=== PATIENT | male | born 1990 ===

== ENCOUNTER 2018-12-29 09:37 | Emergency (ER) | payer OTHER ==
[2018-12-29] MEDS ORDERED: CLINDAMYCIN 600MG/D5W 600 MG/50 ML BAG IV ONE (12:18)
[2018-12-29] MEDS ORDERED: KETOROLAC 30 MG/ML INJ ONE (12:18)
--- NOTE | 2018-12-29 13:09 | ER ---
Nurse's Notes [facility] Name: Khurram Renteria Age: 28 yrs Sex: Male : 1990 Arrival Date: 12/29/2018 Time: 09:44 Bed 23 Private MD: None, None Diagnosis: Cellulitis and acute lymphangitis of face Presentation: 12/29 09:59 Presenting complaint: Patient states: abscess to the left jaw/neck started about sv Thursday when he came here from [facility]. Went to an ER in [place] they I\T\D and sutured it, sent home with prescriptions (Amoxicillin, Tylenol #3, Bactroban ointment). Swelling and redness has increased. Transition of care: patient was not received from another setting of care. Onset of symptoms was December 25, 2018. Care prior to arrival: None. 09:59 Method Of Arrival: Ambulatory sv 09:59 Acuity: ALPA 3 sv 10:57 Risk Assessment: Do you want to hurt yourself or someone else? Patient reports no tw2 desire to harm self or others. Initial Sepsis Screen: Does the patient meet any 2 criteria? No. Patient's initial sepsis screen is negative. Does the patient have a suspected source of infection? Yes: Skin breakdown/wound. Historical: - Allergies: 10:02 No Known Allergies; sv - PMHx: 10:02 None; sv - PSHx: 10:02 left ankle; sv - Immunization history:: Adult Immunizations. - Social history:: Smoking status: Patient/guardian denies using alcohol, street drugs, The patient lives with family. - Ebola Screening: : Patient denies exposure to infectious person. - Family history:: not pertinent. Screenin:57 Abuse screen: Denies threats or abuse. Nutritional screening: No deficits noted. tw2 Tuberculosis screening: No symptoms or risk factors identified. Fall Risk None identified. Assessment: 11:00 General: Appears in no apparent distress. slender, well groomed, Behavior is calm, tw2 cooperative, appropriate for age. Pain: Complains of pain in left ear and left jaw. Neuro: Level of Consciousness is awake, alert, obeys commands, Oriented to person, place, time, situation. Cardiovascular: Heart tones S1 S2 Capillary refill < 3 seconds Patient's skin is warm and dry. Respiratory: Airway is patent Respiratory effort is even, unlabored, Respiratory pattern is regular, symmetrical, Breath sounds are clear bilaterally. GI: No signs and/or symptoms were reported involving the gastrointestinal system. : No signs and/or symptoms were reported regarding the genitourinary system. EENT: No signs and/or symptoms were reported regarding the EENT system. Derm: Abscess located on left ear and left jaw. Musculoskeletal: Range of motion: intact in all extremities. 12:29 Reassessment: Patient appears in no apparent distress at this time. No changes from tw2 previously documented assessment. Patient and/or family updated on plan of care and expected duration. Pain level reassessed. Patient is alert, oriented x 3, equal unlabored respirations, skin warm/dry/pink. 13:40 Reassessment: Patient appears in no apparent distress at this time. Patient and/or tw2 family updated on plan of care and expected duration. Pain level reassessed. Patient is alert, oriented x 3, equal unlabored respirations, skin warm/dry/pink. Patient states feeling better. Vital Signs: 10:03 BP 112 / 70; Pulse 90; Resp 16; Temp 99.7; Pulse Ox 99% ; Weight 81.65 kg; Height 6 ft. sv 0 in. (182.88 cm); 12:29 BP 118 / 74; Pulse 73; Resp 17; Pulse Ox 96% on R/A; tw2 13:39 BP 120 / 74; Pulse 87; Resp 17; Pulse Ox 100% on R/A; tw2 10:03 Body Mass Index 24.41 (81.65 kg, 182.88 cm) sv ED Course: 09:44 Patient arrived in ED. dl4 09:44 None, None is Private Physician. dl4 10:02 Triage completed. sv 10:04 Arm band placed on. sv 10:55 Tona Kelesy MD is Attending Physician. ma2 10:57 Medina Mota RN is Primary Nurse. tw2 10:58 Bed in low position. Call light in reach. Pulse ox on. NIBP on. tw2 12:24 Missed attempt(s): 22 gauge in left antecubital area. Bleeding controlled, band aid tw2 applied, catheter tip intact. 12:26 Inserted saline lock: 22 gauge in right Blood collected. ss 13:41 No provider procedures requiring assistance completed. IV discontinued, intact, tw2 bleeding controlled, No redness/swelling at site. Pressure dressing applied. Administered Medications: 12:25 Drug: TORadol 30 mg Route: IVP; Site: right antecubital; tw2 13:27 Follow up: Response: No adverse reaction; Pain is decreased tw2 12:28 Drug: Clindamycin 600 mg Route: IVPB; Infused Over: 30 mins; Site: right antecubital; tw2 13:05 Follow up: Response: No adverse reaction; IV Status: Completed infusion tw2 Outcome: 13:09 Discharge ordered by . randy 13:41 Discharged to home ambulatory, with friend. tw2 13:41 Condition: stable 13:41 Discharge instructions given to patient, friend, Instructed on discharge instructions, follow up and referral plans. medication usage, Demonstrated understanding of instructions, follow-up care, medications, Prescriptions given X 2. 13:42 Patient left the ED. tw2 Signatures: Kelly Salazar RN CECELIA Charlotte Gomes RN RN ss Wise, Tara, RN RN tw2 Tona Kelsey MD MD ma2 Luna, David dl4
--- NOTE | 2018-12-29 13:10 | EDPHYS ---
Physician Documentation [facility] Name: Khurram Renteria Age: 28 yrs Sex: Male : 1990 Arrival Date: 12/29/2018 Time: 09:44 Bed 23 Private MD: None, None ED Physician Tona Kelsey HPI: 12/29 13:05 This 28 yrs old Male presents to ER via Ambulatory with complaints of Abscess. ma2 13:05 The patient presents with cellulitis of the face. Description: draining. Onset: The ma2 symptoms/episode began/occurred gradually, 2 day(s) ago. Associated signs and symptoms: Pertinent positives: drainage, erythema, swelling, Pertinent negatives: foreign body sensation, headache. Modifying factors: the symptoms are alleviated by the symptoms are aggravated by nothing. Severity of symptoms: At their worst the symptoms were mild, moderate, in the emergency department the symptoms are unchanged. The patient has not experienced similar symptoms in the past. seen [facility] had i and d, here with worsening erythema only takes abx ointment, . Historical: - Allergies: 10:02 No Known Allergies; sv - PMHx: 10:02 None; sv - PSHx: 10:02 left ankle; sv - Immunization history:: Adult Immunizations. - Social history:: Smoking status: Patient/guardian denies using alcohol, street drugs, The patient lives with family. - Ebola Screening: : Patient denies exposure to infectious person. - Family history:: not pertinent. ROS: 13:05 Constitutional: Negative for fever, chills, and weight loss, Respiratory: Negative for ma2 shortness of breath, cough, wheezing, and pleuritic chest pain, Abdomen/GI: Negative for abdominal pain, nausea, diarrhea, and constipation, : Negative for injury, bleeding, discharge, and swelling. 13:05 ENT: Negative for injury, pain, and discharge. 13:05 ENT: Positive for Negative for 13:05 Skin: Positive for cellulitis, Negative for avulsion, ecchymosis, puncture, ulceration. 13:05 All other systems are negative. Exam: 13:05 Constitutional: This is a well developed, well nourished patient who is awake, alert, ma2 and in no acute distress. Eyes: Pupils equal round and reactive to light, extra-ocular motions intact. Lids and lashes normal. Conjunctiva and sclera are non-icteric and not injected. Cornea within normal limits. Periorbital areas with no swelling, redness, or edema. ENT: Nares patent. No nasal discharge, no septal abnormalities noted. Tympanic membranes are normal and external auditory canals are clear. Oropharynx with no redness, swelling, or masses, exudates, or evidence of obstruction, uvula midline. Mucous membranes moist. Neck: Trachea midline, no thyromegaly or masses palpated, and no cervical lymphadenopathy. Supple, full range of motion without nuchal rigidity, or vertebral point tenderness. No Meningismus. Chest/axilla: Normal chest wall appearance and motion. Nontender with no deformity. No lesions are appreciated. Cardiovascular: Regular rate and rhythm with a normal S1 and S2. No gallops, murmurs, or rubs. Normal PMI, no JVD. No pulse deficits. Respiratory: Lungs have equal breath sounds bilaterally, clear to auscultation and percussion. No rales, rhonchi or wheezes noted. No increased work of breathing, no retractions or nasal flaring. Abdomen/GI: Soft, non-tender, with normal bowel sounds. No distension or tympany. No guarding or rebound. No evidence of tenderness throughout. 13:05 Head/face: left facial abescess is drained however has mild edema and cellulitis no fluctuance, redness is 2x2 cm, sutures removed in ed . Vital Signs: 10:03 BP 112 / 70; Pulse 90; Resp 16; Temp 99.7; Pulse Ox 99% ; Weight 81.65 kg; Height 6 ft. sv 0 in. (182.88 cm); 12:29 BP 118 / 74; Pulse 73; Resp 17; Pulse Ox 96% on R/A; tw2 13:39 BP 120 / 74; Pulse 87; Resp 17; Pulse Ox 100% on R/A; tw2 10:03 Body Mass Index 24.41 (81.65 kg, 182.88 cm) sv MDM: 10:56 Patient medically screened. ma2 13:05 Differential diagnosis: cellulitis. Data reviewed: vital signs, nurses notes. ma2 Counseling: I had a detailed discussion with the patient and/or guardian regarding: the historical points, exam findings, and any diagnostic results supporting the discharge/admit diagnosis, the presence of at least one elevated blood pressure reading (>120/80) during this emergency department visit. Response to treatment: the patient's symptoms have markedly improved after treatment. 12/29 12:04 Order name: Suture Removal; Complete Time: 13:27 ma2 12/29 12:05 Order name: IV Start; Complete Time: 12:28 tw2 Administered Medications: 12:25 Drug: TORadol 30 mg Route: IVP; Site: right antecubital; tw2 13:27 Follow up: Response: No adverse reaction; Pain is decreased tw2 12:28 Drug: Clindamycin 600 mg Route: IVPB; Infused Over: 30 mins; Site: right antecubital; tw2 13:05 Follow up: Response: No adverse reaction; IV Status: Completed infusion tw2 Disposition: 12/29/18 13:09 Discharged to Home. Impression: Cellulitis and acute lymphangitis of face. - Condition is Stable. - Discharge Instructions: Cellulitis, Adult. - Prescriptions for Clindamycin HCl 300 mg Oral Capsule - take 1 capsule by ORAL route every 6 hours for 10 days; 40 capsule. Bactrim DS 800- 160 mg Oral Tablet - take 1 tablet by ORAL route every 12 hours for 10 days; 20 tablet. - Work release form, Medication Reconciliation Form, Thank You Letter, Antibiotic Education, Prescription Opioid Use form. - Follow up: Private Physician; When: Tomorrow; Reason: Continuance of care. Signatures: Kelly Salazar RN RN Medina Mota RN RN tw2 Tona Kelsey MD MD ma2 Corrections: (The following items were deleted from the chart) 13:42 13:09 12/29/2018 13:09 Discharged to Home. Impression: Cellulitis and acute tw2 lymphangitis of face. Condition is Stable. Forms are Work release form, Medication Reconciliation Form, Thank You Letter, Antibiotic Education, Prescription Opioid Use. Follow up: Private Physician; When: Tomorrow; Reason: Continuance of care. ma2
== END 2018-12-29 13:42 | disposition home or self-care (01) ==
LOC: ER 09:37
DX: L03.211 Cellulitis of face (principal); I89.1 Lymphangitis; Z48.02 Encounter for removal of sutures
CPT/HCPCS: 96365; 96375; 99284

== ENCOUNTER 2018-12-30 17:15 | Emergency (ER) | payer OTHER ==
[2018-12-30 17:59] LABS: Absolute Monocytes 0.5 K/uL (0.1-1.3); Absolute Neutrophil 4.9 K/uL (1.8-8.0); Basophils % 0.2 % (0-1.3); Eosinophils % 2.1 % (0-4.4); Hematocrit 40.8 % (39.6-49.0); Lymphocytes % 26.4 % (15.3-44.8); MPV 8.8 fL (7.6-11.3); Monocytes % 7.1 % (3.3-12.3); RBC Red Blood Cell Count 4.49 M/uL (4.33-5.43)
[2018-12-30 18:15] LABS: Albumin 4.1 g/dL (3.4-5.0); Bilirubin Total 0.5 mg/dL (0.2-1.0); Potassium 3.4 mmol/L (3.5-5.1)
--- NOTE | 2018-12-30 18:47 | RAD REPORT ---
EXAM DESCRIPTION: CT - Facial Bones W Con Mpr - 12/30/2018 6:32 pm CLINICAL HISTORY: Left submandibular swelling COMPARISON: None. TECHNIQUE: Axial 2 millimeter thick images of the facial bones were obtained with sagittal and coron al reconstruction imaging. All CT scans are performed using dose optimization technique as appropriate and may include automated exposure control or mA/KV adjustment according to patient size. FINDINGS: In the subcutaneous fatty tissues left-side of the face there is a 4.7 cm CC x 2.1 cm AP x 1.6 cm TR bilobed mass. This has central hypodensity with a peripheral enhancing rim. Superior sierra n is at the earlobe and extends inferiorly 4.7 cm. This is superficial to the left parotid gland and is not appear to directly involve the gland. Abscess in the subcutaneous fatty tissues is the most li jon etiology. No air or foreign body in the soft tissues. Small reactive lymph nodes are seen in the left-side of the neck. No parotid, submandibular or thyroi d gland acute finding identifiable. No pharyngeal abnormality. Tonsil, tongue base and laryngeal stru ctures show no suspicious findings. No vascular or bone acute finding. Mastoid air cells and paranasa l sinuses are clear. Patient has significant left deviation of the anterior nasal septum and a more m ild right deviation of the mid nasal septum. IMPRESSION: There is a 4.7 cm CC x 2.1 cm AP x 1.6 cm TR bilobed abscess in the subcutaneous tissues inferior to the left earlobe and external auditory canal.
[2018-12-30] MEDS ORDERED: LIDOCAINE 2% MPF 5 ML VIAL ONE (19:52)
[2018-12-30] MEDS ORDERED: FENTANYL CITR 100 MCG/2 ML ONE (20:38)
[2018-12-30] MEDS ORDERED: ONDANSETRON 4 MG/2 ML VIAL ONE (20:39)
--- NOTE | 2018-12-30 21:02 | ER ---
Nurse's Notes [facility] Name: Khurram Renteria Age: 28 yrs Sex: Male : 1990 Arrival Date: 12/30/2018 Time: 17:17 Bed 8 Private MD: None, None Diagnosis: Cutaneous abscess of neck Presentation: 12/30 17:26 Presenting complaint: Patient states: abscesses to L side of face near ear lobe that ss are not going away despite taking oral antibiotics. Transition of care: patient was not received from another setting of care. Onset of symptoms was December 25, 2018. Risk Assessment: Do you want to hurt yourself or someone else? Patient reports no desire to harm self or others. Initial Sepsis Screen: Does the patient meet any 2 criteria? No. Patient's initial sepsis screen is negative. Does the patient have a suspected source of infection? Yes: Skin breakdown/wound. Care prior to arrival: None. 17:26 Method Of Arrival: Ambulatory ss 17:26 Acuity: ALPA 4 ss 17:35 Acuity: ALPA 3 sv Historical: - Allergies: 17:23 No Known Allergies; sv - PMHx: 17:23 None; sv - PSHx: 17:22 left ankle; sv - Immunization history:: Adult Immunizations up to date. - Social history:: Smoking status: Patient/guardian denies using tobacco. - Ebola Screening: : Patient denies exposure to infectious person Patient denies travel to an Ebola-affected area in the 21 days before illness onset. Screenin:21 Abuse screen: Denies threats or abuse. Denies injuries from another. Nutritional sv screening: No deficits noted. Tuberculosis screening: No symptoms or risk factors identified. Fall Risk None identified. Assessment: 17:23 General: Appears in no apparent distress. uncomfortable, Behavior is calm, cooperative, sv appropriate for age. Neuro: Level of Consciousness is awake, alert, obeys commands, Oriented to person, place, time, situation, Moves all extremities. Full function Gait is steady, Speech is normal. Respiratory: Respiratory effort is even, unlabored, Respiratory pattern is regular, symmetrical. Derm: Abscess located on left cheek and left mandible is red, is raised. Musculoskeletal: Range of motion: intact in all extremities, Swelling present in left cheek, left mandible and left lateral aspect of neck. 18:25 Reassessment: Patient appears in no apparent distress at this time. No changes from sv previously documented assessment. Patient and/or family updated on plan of care and expected duration. Pain level reassessed. Patient is alert, oriented x 3, equal unlabored respirations, skin warm/dry/pink. 19:45 Reassessment: Patient appears in no apparent distress at this time. Patient and/or aa1 family updated on plan of care and expected duration. Pain level reassessed. Patient is alert, oriented x 3, equal unlabored respirations, skin warm/dry/pink. Awaiting provider for I \T\ D; set up at bedside. 20:46 Reassessment: Patient appears in no apparent distress at this time. Patient and/or aa1 family updated on plan of care and expected duration. Pain level reassessed. Patient is alert, oriented x 3, equal unlabored respirations, skin warm/dry/pink. PA at bedside for I \T\ D. 21:18 Reassessment: Patient appears in no apparent distress at this time. Patient is alert, aa1 oriented x 3, equal unlabored respirations, skin warm/dry/pink. Discussed d/c \T\ f/u instructions with pt \T\ family; denies questions or concerns at this time. Vital Signs: 17:26 BP 134 / 72; Pulse 73; Resp 16; Temp 98.2(TE); Pulse Ox 98% on R/A; Weight 81.65 kg; ss Height 6 ft. 0 in. (182.88 cm); Pain 6/10; 18:25 BP 137 / 80; Pulse 69; Resp 18; Pulse Ox 99% ; sv 19:45 BP 123 / 77; Pulse 72; Resp 16; Pulse Ox 99% on R/A; aa1 20:46 BP 123 / 81; Pulse 76; Resp 18; Pulse Ox 98% on R/A; aa1 21:18 BP 124 / 84; Pulse 72; Resp 16; Temp 98.3; Pulse Ox 98% on R/A; Pain 3/10; aa1 17:26 Body Mass Index 24.41 (81.65 kg, 182.88 cm) ED Course: 17:17 Patient arrived in ED. sb2 17:18 None, None is Private Physician. sb2 17:20 Kelly Salazar, CECELIA is Primary Nurse. sv 17:21 Patient has correct armband on for positive identification. Bed in low position. Call sv light in reach. Door closed. Head of bed elevated. 17:22 Regulo Al PA is PHCP. [facility] 17:23 Basilio Umana MD is Attending Physician. [facility] 17:23 Arm band placed on Patient placed in an exam room, on a stretcher. sv 17:28 Nurse Practitioner and/or Physician [employer] to see patient. sv 17:29 Triage completed. ss 17:35 Initial lab(s) drawn, by me, sent to lab. First set of blood cultures drawn by me. sv Inserted saline lock: 20 gauge in right antecubital area, using aseptic technique. Blood collected. Flushed right antecubital with 5 ml normal saline. 17:45 Radiology exam delayed due to lab results not completed at this time. (BUN/Creatinine). vm2 17:50 Second set of blood cultures drawn by me. sv 17:53 Awaiting lab results, Awaiting CT Scan. sv 18:08 Radiology exam delayed due to lab results not completed at this time. (BUN/Creatinine). vm2 18:[address] Scan. sv 18:32 CT completed. Patient tolerated procedure well. Patient moved back from CT. nj 18:33 Facial Bones W/ Con \T\ MPR CT In Process Unspecified. EDMS 19:10 Report given to Ivis RN, Devika RN, Alyssa RN. sv 19:12 Primary Nurse role handed off by Kelly Salazar, CECELIA sv 19:39 Ivis Del Rosario, RN is Primary Nurse. aa1 20:49 Assist provider with I \T\ D: of an abscess on left jawline Set up I\T\D tray. Performed by aa 1 Regulo LEAL Culture sent to lab. Wound packed. iodoform gauze, Dressing with Neosporin and 4X4s, tape Patient tolerated well. 21:18 IV discontinued, intact, bleeding controlled, No redness/swelling at site. Pressure aa1 dressing applied. Administered Medications: 20:30 Drug: Lidocaine-Epinephrine -1%: (1:100,000) 10 ml Volume: 20 ml; Route: Infiltration; aa1 20:35 Drug: fentaNYL (PF) 50 mcg Route: IVP; Site: right antecubital; lp1 21:15 Follow up: Response: No adverse reaction; Pain is decreased aa1 20:35 Drug: Zofran 4 mg Route: IVP; Site: right antecubital; lp1 21:15 Follow up: Response: No adverse reaction aa1 Outcome: 21:01 Discharge ordered by . hannah 21:18 Discharged to home ambulatory, with family. aa1 21:18 Condition: good 21:18 Discharge instructions given to patient, family, Instructed on discharge instructions, follow up and referral plans. medication usage, wound care, Demonstrated understanding of instructions, follow-up care, medications, wound care, Prescriptions given X 1. 21:20 Patient left the ED. aa1 Signatures: Dispatcher [employer] EDKelly Dong RN RN Ivis Blevins RN RN aa1 Regulo Al PA PA jmm Smirch, Shelby, RN RN ss Pena, Laura, RN RN lp1 Kenny Schaffer Victoria 2 Poornima Sandoval 2
--- NOTE | 2018-12-30 21:02 | EDPHYS ---
Physician Documentation [facility] Name: Khurram Renteria Age: 28 yrs Sex: Male : 1990 Arrival Date: 12/30/2018 Time: 17:17 Bed 8 Private MD: None, None ED Physician Basilio Umana HPI: 12/30 17:39 This 28 yrs old Male presents to ER via Ambulatory with complaints of Abscess. m 17:39 The patient presents with an abscess of the neck and left lateral aspect of neck. jmm Onset: The symptoms/episode began/occurred gradually, 3 day(s) ago. Possible cause(s): unknown. Associated signs and symptoms: Pertinent negatives: drainage, fever. This is a 28 year old male with no chronic medical conditions that presents to the ED with complaints of swelling to the left side of his jaw inferior to his ear. The area was drained and sutured. Patient was evaluated at this ED yesterday and prescribed oral antibiotics. patient states he has developed increased swelling. . Historical: - Allergies: 17:23 No Known Allergies; sv - PMHx: 17:23 None; sv - PSHx: 17:22 left ankle; sv - Immunization history:: Adult Immunizations up to date. - Social history:: Smoking status: Patient/guardian denies using tobacco. - Ebola Screening: : Patient denies exposure to infectious person Patient denies travel to an Ebola-affected area in the 21 days before illness onset. ROS: 17:39 Constitutional: Negative for chills, fever. jmm 17:39 Skin: Positive for abscess, swelling. 17:39 All other systems are negative. 17:39 Constitutional: Negative for fever, chills, and weight loss. [facility] Exam: 17:39 Head/Face: atraumatic. Eyes: EOMI, no conjunctival erythema appreciated ENT: Moist [facility] Mucus Membranes 17:39 Cardiovascular: Regular rate and rhythm. No edema appreciated Respiratory: Normal respirations, no respiratory distress appreciated Back: Normal ROM 17:39 Constitutional: The patient appears in no acute distress, alert, awake. 17:39 Neck: left submandibular swelling is appreciated inferior to the left area. TTP, erythematous. 17:39 Skin: erythema noted to the left subauricular region. 17:39 Neuro: Orientation: is normal, Mentation: is normal, Memory: is normal. 17:39 Psych: Behavior/mood is pleasant, cooperative. Vital Signs: 17:26 BP 134 / 72; Pulse 73; Resp 16; Temp 98.2(TE); Pulse Ox 98% on R/A; Weight 81.65 kg; ss Height 6 ft. 0 in. (182.88 cm); Pain 6/10; 18:25 BP 137 / 80; Pulse 69; Resp 18; Pulse Ox 99% ; sv 19:45 BP 123 / 77; Pulse 72; Resp 16; Pulse Ox 99% on R/A; aa1 20:46 BP 123 / 81; Pulse 76; Resp 18; Pulse Ox 98% on R/A; aa1 21:18 BP 124 / 84; Pulse 72; Resp 16; Temp 98.3; Pulse Ox 98% on R/A; Pain 3/10; aa1 17:26 Body Mass Index 24.41 (81.65 kg, 182.88 cm) ss Procedures: 20:59 I \T\ D: Incision and drainage was performed for an abscess of the left lateral aspect of [facility] neck Prepped with Betadine, Anesthetized with 2 ml's 2% Lidocaine. Incised with #11 blade. Drained moderate amount purulent fluid. Packed with iodoform gauze, Dressing: non-Adherent dressing, the patient tolerated the procedure well. MDM: 17:36 Patient medically screened. [facility] 20:59 Data reviewed: vital signs, nurses notes, radiologic studies, CT scan. Counseling: I hannah had a detailed discussion with the patient and/or guardian regarding: the historical points, exam findings, and any diagnostic results supporting the discharge/admit diagnosis, lab results, radiology results, the need for outpatient follow up, to return to the emergency department if symptoms worsen or persist or if there are any questions or concerns that arise at home. ED course: Patient is alert and non toxic in appearance in the ED. I discussed with the patient the need for close ENT follow up. Patient is otherwise advised to return to the ED if increased swelling, fever, increased pain or any other concerning symptoms develop. . 12/30 17:36 Order name: CBC with Diff; Complete Time: 18:02 [facility] 12/30 17:36 Order name: CMP; Complete Time: 18:46 [facility] 12/30 17:36 Order name: Procalcitonin; Complete Time: 18:46 [facility] 12/30 17:36 Order name: Lactate; Complete Time: 18:46 [facility] 12/30 17:36 Order name: Blood Culture Adult (2) [facility] 12/30 20:55 Order name: Wound Culture aa1 12/30 17:36 Order name: Saline Lock; Complete Time: 17:52 [facility] 12/30 17:38 Order name: Facial Bones W/ Con \T\ MPR CT; Complete Time: 18:51 [facility] 12/30 19:19 Order name: Dressing - Wound; Complete Time: 21:00 [facility] 12/30 19:19 Order name: Gloves, Sterile; Complete Time: 19:44 [facility] 12/30 19:19 Order name: I\T\D Setup; Complete Time: 19:44 [facility] 12/30 19:19 Order name: Scalpel; Complete Time: 19:45 jm Administered Medications: 20:30 Drug: Lidocaine-Epinephrine -1%: (1:100,000) 10 ml Volume: 20 ml; Route: Infiltration; aa1 20:35 Drug: fentaNYL (PF) 50 mcg Route: IVP; Site: right antecubital; lp1 21:15 Follow up: Response: No adverse reaction; Pain is decreased aa1 20:35 Drug: Zofran 4 mg Route: IVP; Site: right antecubital; lp1 21:15 Follow up: Response: No adverse reaction aa1 Disposition: 12/31 06:44 Co-signature as Attending Physician, Basilio Umana MD I agree with the assessment and kdr plan of care. Disposition: 12/30/18 21:01 Discharged to Home. Impression: Cutaneous abscess of neck. - Condition is Stable. - Discharge Instructions: Skin Abscess, Incision and Drainage. - Prescriptions for Ultracet 37.5- 325 mg Oral Tablet - take 1 tablet by ORAL route every 6 hours - for up to 5 days; do not exceed 8 tablets per day.; 20 tablet. - Medication Reconciliation Form, Thank You Letter, Antibiotic Education, Prescription Opioid Use form. - Follow up: Private Physician; When: 2 - 3 days; Reason: Recheck today's complaints, Continuance of care, Re-evaluation by your physician. - Notes: PLEASE FOLLOW UP WITH AN ENT. PLEASE RETURN TO THE EMERGENCY DEPARTMENT IF YOU DEVELOP INCREASED PAIN, INCREASED SWELLING, FEVER, OR ANY OTHER CONCERNING SYMPTOMS. Signatures: Dispatcher [employer] EDKelly Dong RN RN Ivis Del Rosario RN RN aa1 Basilio Umana MD MD kdr Mickail, Joel, PA PA jmm Smirch, Shelby, RN RN ss Alyssa Dash RN RN lp1 Corrections: (The following items were deleted from the chart) 12/30 21:20 21:01 12/30/2018 21:01 Discharged to Home. Impression: Cutaneous abscess of neck. aa1 Condition is Stable. Forms are Medication Reconciliation Form, Thank You Letter, Antibiotic Education, Prescription Opioid Use. Follow up: Private Physician; When: 2 - 3 days; Reason: Recheck today's complaints, Continuance of care, Re-evaluation by your physician. hannah
== END 2018-12-30 21:20 | disposition home or self-care (01) ==
LOC: ER 17:15
PROC: 0J950ZZ Drainage of Left Neck Subcutaneous Tissue and Fascia, Open Approach (ICD-10-PCS; principal; 2018-12-30)
DX: L02.11 Cutaneous abscess of neck (principal)
CPT/HCPCS: 36415; 70487; 76377; 80053; 83605; 84145; 85025; 87040; 87070; 87205; 96374; 96375; 99284; J2405; J3010; Q9967